=== PATIENT | male | born 1980 | race African-American/Black ===

== ENCOUNTER 2016-08-25 10:58 | Emergency (ER) | payer OTHER ==
--- NOTE | ~2016-08-25 | CR181 ---
[facility] A Service of [facility] & [facility] RADIOLOGY TEXT RESULTS PATIENT: ASHLEY STERN LOCATION: [place] : 76 UNIT #: [id number] AGE: [address]: Mar Ram SEX: M ORDER DR: [id number] [facility] [address] [place], [place] [address] [id number] E MR#: [id number] Acc #: [id number] NAME: ASHLEY STERN : 1980 SEX: M STUDY DATE/TIME: 08/25/2016 12:03 UNIT: [facility] ROOM: STUDY DESCRIPTION: CR Lumbar Spine 2 or 3 Views Attending Physician: Mar Ram Pa-C Referring Physician: Karri Mitchell M.D. Ordering Physician: Sridhar Puga M.D. Primary Care Physician: No Primary Care Physician MEDICAL IMAGING REPORT This report is preliminary unless electronic signature is present EXAM Lumbar series, 08/25/2016. INDICATIONS Pain in the left side of the hip and lower back for a month, moved something heavy. TECHNIQUE Three views lumbar spine compared with 11/04/2011. FINDINGS Vertebral body heights and alignment are preserved. No acute fracture. No significant degenerative change. There is mild facet arthropathy in the lower lumbar levels. IMPRESSION 1. Mild degenerative change in the lower lumbar spine, otherwise, negative. Dictated by... Harpreet Roblero M.D. THIS IS AN ELECTRONICALLY VERIFIED REPORT Harpreet Roblero M.D. at 08/26/2016 8:46 AM Nadine TD: 08/25/2016 22:35 JOB #: [id number] MEDICAL IMAGING REPORT Page 1 of 1 COPY
--- NOTE | ~2016-08-25 | CR150 ---
[facility] A Service [facility] RADIOLOGY TEXT RESULTS PATIENT: ASHLEY STERN LOCATION: [facility] : 76 UNIT #: [id number] AGE: [address]: Mar Ram SEX: M ORDER DR: [id number] [facility]. [place], [place] [address] [id number] E MR#: [id number] Acc #: [id number] NAME: ASHLEY STERN : 1980 SEX: M STUDY DATE/TIME: 08/25/2016 12:05 UNIT: [facility] ROOM: STUDY DESCRIPTION: CR Hip Min 2 Views Lt Attending Physician: Mar Ram Pa-C Ordering Physician: Ed Savage Puga M.D. Primary Care Physician: No Primary Care Physician MEDICAL IMAGING REPORT This report is preliminary unless electronic signature is present EXAM Left hip series, 2 views, 08/25/2016. INDICATION 36-year-old male who has pain in the left lower side, hip and low back for a month after moving something heavy. TECHNIQUE Two views left hip. COMPARISON No comparisons. FINDINGS No acute fracture. The bones are osteopenic. Bony pelvis intact. Probable vascular calcifications in the left hemipelvis. IMPRESSION No acute fracture. Mild osteopenia greater than expected for patient age. Dictated by... Harpreet Roblero M.D. THIS IS AN ELECTRONICALLY VERIFIED REPORT Harpreet Roblero M.D. at 08/26/2016 8:46 AM DANY/bell TD: 08/25/2016 22:31 JOB #: [id number] MEDICAL IMAGING REPORT [facility] A Service [facility] RADIOLOGY TEXT RESULTS PATIENT: ASHLEY STERN LOCATION: [facility] : 76 UNIT #: [id number] AGE: [address]: Mar Ram SEX: M ORDER DR: Page 1 of 1 COPY
[~2016-08-25 10:58] MED LIST: FLEXERIL PO; ORUDIS75 M1 PO; PREDNISONE PO
== END 2016-08-25 13:13 | disposition home or self-care (01) ==
LOC: CFTX 10:58 → CED 10:58 → CFTX 11:44
DX: M25.552 Pain in left hip (principal); F17.200 Nicotine dependence, unspecified, uncomplicated
CPT/HCPCS: 72100; 73502; 99283